=== PATIENT | female | born 2000 | race Caucasian/White ===

== ENCOUNTER 2022-10-09 10:54 | Emergency (ER) | payer SELFPAY ==
[2022-10-09] MEDS ORDERED: MORPHINE 4 MG/ML SYR ONE ×2 (11:00→12:20)
[2022-10-09] MEDS ORDERED: ONDANSETRON 4 MG/2 ML VIAL ONE (11:01)
--- NOTE | 2022-10-09 12:30 | RAD REPORT ---
EXAM DESCRIPTION: RAD - Ankle Left 3 View - 10/09/2022 11:45 am CLINICAL HISTORY: Pain COMPARISON: No comparisons FINDINGS/IMPRESSION: Distal fibular spiral diaphyseal fracture above the tibiofibular syndesmosis an d approximately 1/3 shaft with of maximal displacement. The tibiofibular syndesmosis and medial clear space are widened. A posterior malleolar fracture is also present.
--- NOTE | 2022-10-09 12:30 | RAD REPORT ---
EXAM DESCRIPTION: RAD - Tib Fib Left - 10/09/2022 11:45 am CLINICAL HISTORY: Pain COMPARISON: No comparisons FINDINGS/IMPRESSION: Distal fibular diaphyseal fracture above the tibiofibular syndesmosis. Posterio r malleolar fracture. Disrupted ankle mortise.
[2022-10-09] MEDS ORDERED: DIPHENHYDRAMINE 25 MG TAB/CAP ONE (12:55)
--- NOTE | 2022-10-09 13:40 | ER ---
Nurse's Notes [facility] Name: Autumn Veronica Age: 21 yrs Sex: Female : 2000 Arrival Date: 10/09/2022 Time: 10:55 Bed 4 Private MD: Diagnosis: Displaced bimalleolar fracture of left lower leg, initial encounter for closed fracture Presentation: 10/09 10:55 Chief complaint: Patient states: Pt was at [employer] and jumped into a ball pit; stated vg1 Left ankle pain; site appears to have a deformity. Coronavirus screen: Vaccine status: Patient reports being unvaccinated. Client denies travel out of the [place] in the last 14 days. Ebola Screen: Patient negative for fever greater than or equal to 101.5 degrees Fahrenheit, and additional compatible Ebola Virus Disease symptoms. Initial Sepsis Screen: Does the patient meet any 2 criteria? No. Patient's initial sepsis screen is negative. Does the patient have a suspected source of infection? No. Patient's initial sepsis screen is negative. Risk Assessment: Do you want to hurt yourself or someone else? Patient reports no desire to harm self or others. Onset of symptoms was October 09, 2022. 10:55 Method Of Arrival: Wheelchair vg1 10:55 Acuity: CHARLIE 3 vg1 Triage Assessment: 10:57 General: Appears uncomfortable, Behavior is cooperative. Pain: Complains of pain in vg1 left lateral ankle, left medial ankle and anterior aspect of left ankle Pain currently is 10 out of 10 on a pain scale. Pain began about 20 minutes ago Noted to be crying, grimacing, moaning. Musculoskeletal: Bony deformity noted of anterior aspect of left ankle Swelling present in left lateral ankle, left medial ankle and anterior aspect of left ankle. Historical: - Allergies: 10:57 Amoxicillin; vg1 - Home Meds: 10:57 None [Active]; vg1 - PMHx: 10:57 Asthma; vg1 - Immunization history:: Client reports having NOT received the Covid vaccine. - Social history:: Smoking status: Patient denies any tobacco usage or history of. - Family history:: not pertinent. - Hospitalizations: : No recent hospitalization is reported. Screenin:00 [facility] ED Fall Risk Assessment (Adult) History of falling in the last 3 months, hb including since admission Yes- single mechanical fall (1 pt) Confusion or Disorientation No (0 pts) Intoxicated or Sedated No (0 pts) Impaired Gait Yes (1 pt) Mobility Assist Device Used No (0 pt) Altered Elimination No (0 pt) Score/Fall Risk Level 3 or more points = High Risk Oriented to surroundings, Maintained a safe environment. Abuse screen: Denies threats or abuse. Denies injuries from another. Nutritional screening: No deficits noted. Tuberculosis screening: No symptoms or risk factors identified. Assessment: 11:01 General: Appears in no apparent distress. uncomfortable, Behavior is cooperative, hb anxious. Pain: Pain currently is 10 out of 10 on a pain scale. Neuro: Level of Consciousness is awake, alert, obeys commands, Oriented to person, place, time, situation. Cardiovascular: Patient's skin is warm and dry. Respiratory: Respiratory effort is even, unlabored, Respiratory pattern is regular, symmetrical. GI: No signs and/or symptoms were reported involving the gastrointestinal system. : No signs and/or symptoms were reported regarding the genitourinary system. EENT: No signs and/or symptoms were reported regarding the EENT system. Derm: Skin is pink, warm \T\ dry. Musculoskeletal: Reports severe left ankle pain. 11:33 Reassessment: Patient is alert, oriented x 3, equal unlabored respirations, skin aa5 warm/dry/pink. Patient states feeling better. pain is decreased . 13:30 Reassessment: Patient appears in no apparent distress at this time. Patient and/or hb family updated on plan of care and expected duration. Pain level reassessed. Patient is alert, oriented x 3, equal unlabored respirations, skin warm/dry/pink. Vital Signs: 10:55 BP 128 / 70; Pulse 88; Resp 20; Temp 98.2(TE); Pulse Ox 100% on R/A; Weight 113.4 kg; vg1 Height 5 ft. 5 in. (165.10 cm); Pain 10; 11:33 BP 126 / 73; Pulse 80; Resp 16 S; Pulse Ox 100% on R/A; aa5 10:55 Body Mass Index 41.60 (113.40 kg, 165.10 cm) vg1 ED Course: 10:55 Patient arrived in ED. rn 10:55 Gustavo Hutchins MD is Attending Physician. rn 10:57 Triage completed. vg1 10:57 Arm band placed on. vg1 10:58 Inserted saline lock: 20 gauge in left forearm, using aseptic technique. ,using aseptic aa5 technique. . 11:00 Patient has correct armband on for positive identification. hb 11:02 Kim Mejía, RN is Primary Nurse. aa5 11:47 XRAY Tib Fib LEFT In Process Unspecified. EDMS 11:47 XRAY Ankle LEFT 3 view In Process Unspecified. EDMS 12:22 Orthoglass splint: Posterior short lleg splint applied on left leg. stirrup splint jl7 applied on left leg. 12:29 Crutch training done. em1 13:57 No provider procedures requiring assistance completed. IV discontinued, intact, hb bleeding controlled, No redness/swelling at site. Administered Medications: 11:00 Drug: morphine 4 mg Route: IVP; Infused Over: 4 mins; Site: left forearm; aa5 11:05 Follow up: Response: No adverse reaction aa5 11:00 Drug: Zofran (Ondansetron) 4 mg Route: IVP; Site: left forearm; aa5 11:05 Follow up: Response: No adverse reaction aa5 12:23 Drug: morphine 4 mg Route: IVP; Infused Over: 4 mins; Site: left antecubital; hb 12:55 Drug: Benadryl (diphenhydrAMINE) 50 mg Route: PO; aa5 Medication: 11:01 VIS not applicable for this client. hb Outcome: 13:40 Discharge ordered by . rn 13:57 Discharged to home via wheelchair, with crutches, with family. hb 13:57 Condition: stable 13:57 Discharge instructions given to patient, Instructed on discharge instructions, follow up and referral plans. medication usage, crutch walking, splint care Demonstrated understanding of instructions, follow-up care, medications, crutch walking, Prescriptions given X 1. 13:58 Patient left the ED. hb Signatures: Dispatcher [employer] EDMS Gustavo Hutchins MD MD rn Martinez, Eric em1 Kim Mejía, RN RN aa5 Samantha Vallejo, RN RN Corie Snyder RN RN jl7 Judy Tillman RN RN vg1 Corrections: (The following items were deleted from the chart) 11:03 11:00 morphine 4 mg IVP in left antecubital over 4 mins hb aa5 11: 11:00 Zofran (Ondansetron) 4 mg IVP in left antecubital hb aa5 11: 10:58 Inserted saline lock: 20 gauge in left antecubital area, using aseptic technique. aa5 ,using aseptic technique. by Kim WILKERSON hb
--- NOTE | 2022-10-09 13:40 | EDPHYS ---
Physician Documentation [facility] Name: Autumn Veronica Age: 21 yrs Sex: Female : 2000 Arrival Date: 10/09/2022 Time: 10:55 Bed 4 Private MD: ED Physician Gustavo Hutchins HPI: 10/09 10:59 This 21 yrs old Female presents to ER via Wheelchair with complaints of Ankle Injury. rn 10:59 The patient presents with decreased range of motion, a deformity, an injury. The rn complaints affect the left ankle. Onset: The symptoms/episode began/occurred just prior to arrival. Context: resulted from a mis-step by the patient, The mechanism of injury is unknown. The patient is unable to bear weight. The patient is not able to ambulate. Associated signs and symptoms: Pertinent positives: swelling, Pertinent negatives: fever, weakness. Modifying factors: The symptoms are alleviated by nothing, the symptoms are aggravated by movement. Severity of symptoms: At their worst the symptoms were moderate, in the emergency department the symptoms are unchanged. The patient has not experienced similar symptoms in the past. Pt reports jumped into ball pit at [employer], thought it was deeper than it was, rolled left ankle, hurts to move and put weight on it. Denies other injuries. Reports pain shoot to foot and towards knee, but no injury or focal pain to foot/knee. . Historical: - Allergies: 10:57 Amoxicillin; vg1 - Home Meds: 10:57 None [Active]; vg1 - PMHx: 10:57 Asthma; vg1 - Immunization history:: Client reports having NOT received the Covid vaccine. - Social history:: Smoking status: Patient denies any tobacco usage or history of. - Family history:: not pertinent. - Hospitalizations: : No recent hospitalization is reported. ROS: 10:59 Constitutional: Negative for fever, chills, and weight loss, MS/Extremity: + left ankle rn injury and pain Skin: Neg for open wounds Neuro: Neg for numbness/tingling Exam: 10:59 Constitutional: This is a well developed, well nourished patient who is awake, alert, rn rolled into room in wheelchair Skin: Warm, dry MS/ Extremity: Pulses equal, no cyanosis. Neurovascular intact. + distal tib/fib swelling and deformity, no open wounds. No tenderness to proximal tib/fib/knee or foot. Vital Signs: 10:55 BP 128 / 70; Pulse 88; Resp 20; Temp 98.2(TE); Pulse Ox 100% on R/A; Weight 113.4 kg; vg1 Height 5 ft. 5 in. (165.10 cm); Pain 10/10; 11:33 BP 126 / 73; Pulse 80; Resp 16 S; Pulse Ox 100% on R/A; aa5 10:55 Body Mass Index 41.60 (113.40 kg, 165.10 cm) vg1 MDM: 10:55 Patient medically screened. rn 12:05 Test interpretation: by ED physician or midlevel provider: plain radiologic studies, rn Independent interpretation of xrays by myself: Xray left tib/fib and ankle show high fibular compound fracture that is minimally displaced, and also possible posterior/distal tib fracture. . 13:34 Differential diagnosis: fracture, sprain, comminuted fracture, bimalleolar fracture. rn Data reviewed: vital signs, nurses notes, radiologic studies, plain films, and as a result, I will discharge patient. Counseling: I had a detailed discussion with the patient and/or guardian regarding: the historical points, exam findings, and any diagnostic results supporting the discharge/admit diagnosis, radiology results, the need for outpatient follow up, to return to the emergency department if symptoms worsen or persist or if there are any questions or concerns that arise at home. Response to treatment: the patient's symptoms have markedly improved after treatment, and as a result, I will discharge patient. Special discussion: I discussed with the patient/guardian in detail that at this point there is no indication for admission to the hospital. It is understood, however, that if the symptoms persist or worsen the patient needs to return immediately for re-evaluation. Based on the history and exam findings, there is no indication for further emergent testing or inpatient evaluation. I discussed with the patient/guardian the need to see the orthopedic surgeon for further evaluation of the symptoms. ED course: Pt with closed, acute, bimalleolar fracture of Left ankle. Spoke with patient, will need surgery, patient is not from here, is from [place] and states needs to get back. Stable vitals. Placed in splint and given splints. Recommend scooter. . 10/09 10:56 Order name: XRAY Tib Fib LEFT; Complete Time: 12:44 rn 10/09 11:28 Order name: XRAY Ankle LEFT 3 view; Complete Time: 12:44 rn 10/09 10:56 Order name: IV Start; Complete Time: 11:00 rn 10/09 10:56 Order name: NPO; Complete Time: 11:00 rn 10/09 11:47 Order name: Splint - Ankle: Posterior; Complete Time: 12:22 rn 10/09 11:47 Order name: Splint - Ankle: Orthoglass: Stirrup; Complete Time: 12:22 rn 10/09 12:17 Order name: Crutches; Complete Time: 12:29 rn Administered Medications: 11:00 Drug: morphine 4 mg Route: IVP; Infused Over: 4 mins; Site: left forearm; aa5 11:05 Follow up: Response: No adverse reaction aa5 11:00 Drug: Zofran (Ondansetron) 4 mg Route: IVP; Site: left forearm; aa5 11:05 Follow up: Response: No adverse reaction aa5 12:23 Drug: morphine 4 mg Route: IVP; Infused Over: 4 mins; Site: left antecubital; hb 12:55 Drug: Benadryl (diphenhydrAMINE) 50 mg Route: PO; aa5 Disposition Summary: 10/09/22 13:40 Discharge Ordered Location: Home rn Problem: new rn Symptoms: have improved rn Condition: Stable rn Diagnosis - Displaced bimalleolar fracture of left lower leg, initial encounter for closed rn fracture Followup: rn - With: Private Physician - When: As needed - Reason: Recheck today's complaints, Re-evaluation by your physician Discharge Instructions: - Discharge Summary Sheet rn - Ankle Fracture rn - Cast or Splint Care, Adult rn - Crutch Use, Adult rn Forms: - Medication Reconciliation Form rn - Thank You Letter rn - Antibiotic privacy attorney - Prescription Opioid Use rn Prescriptions: - Tylenol-Codeine #3 300 mg-30 mg Oral - take 1 tablet by ORAL route every 6-8 hours As needed; 15 tablet; Refills: 0, rn Product Selection Permitted Signatures: Dispatcher [employer] Gustavo Winter MD MD rn Calderon, Audri, RN RN aa5 Samantha Vallejo RN RN Judy Ruvalcaba, RN RN vg1
[2022-10-09 14:37] VITALS: TEMP 98.2; O2SAT 100
[2022-10-09 14:38] VITALS: BP 126/73
== END 2022-10-09 13:58 | disposition home or self-care (01) ==
LOC: ER 10:54
PROC: 2W3RX1Z Immobilization of Left Lower Leg using Splint (ICD-10-PCS; principal; 2022-10-09)
DX: S82.842A Displaced bimalleolar fracture of left lower leg, initial encounter for closed fracture (principal); Z88.1 Allergy status to other antibiotic agents
CPT/HCPCS: 99284; J2405